=== PATIENT | female | born 1990 | race African-American/Black ===

== ENCOUNTER 2018-03-03 09:58 | Emergency (ER) | payer MEDICAID ==
[~2018-03-03] VITALS: Ht 172.7 cm; Wt 118.2 kg
[~2018-03-03 09:58] MED LIST: XANAX0.25 MG PO
[2018-03-03 10:02] VITALS: Ht 172.7 cm; Wt 118.2 kg
[2018-03-03] MEDS ORDERED: KLONOPIN1 MG PO (10:04)
[2018-03-03 10:45] LABS: ALBUMIN 3.1 g/dL (3.4-5.0); ALKALINE PHOSPHATASE 67 U/L (46-116); ALT (SGPT) 32 U/L (10-68); AMYLASE - SERUM 61 U/L (25-115); BASOPHILS 0.8 % (0-2); BILIRUBIN - TOTAL 0.27 mg/dL (0.2-1.3); CALC OSMOLALITY 278 mosm/kg (275-300); CALCIUM 8.5 mg/dL (8.5-10.1); CARBON DIOXIDE 26.3 mmol/L (21.0-32.0); CHLORIDE - SERUM 105 mmol/L (98-107); CREATININE - SERUM 0.9 mg/dL (0.6-1.3); EOSINOPHILS 0.8 % (0-7); GLUCOSE 85 mg/dL (74-106); HEMATOCRIT 38.9 % (36.0-48.0); HEMOGLOBIN 13.1 g/dL (12-16); IMMATURE GRANULOCYTES 0.2 % (0-5); LIPASE 106 U/L (73-393); LYMPHOCYTES 43.6 % (15-50); MCH 30.4 pg (26.0-34.0); MCHC 33.7 g/dL (31.0-37.0); MCV 90.3 fL (80.0-100.0); MONOCYTES 7.5 % (2-11); NEUTROPHILS 47.1 % (40-80); PLATELET COUNT 246 10x3/uL (130-400); POTASSIUM - SERUM 3.8 mmol/L (3.5-5.1); PROTEIN - SERUM 6.6 g/dL (6.4-8.2); RBC 4.31 10x6/uL (4.00-5.40); RDW 13.6 % (11.5-14.5); SODIUM 139 mmol/L (136-145); UREA NITROGEN 17 mg/dL (7-18); WBC 5.2 10x3/uL (4.8-10.8); eGFR NON AFRICAN AMERICAN 79 mL/min (90-120)
[2018-03-03 11:21] LABS: APPEARANCE CLEAR (CLEAR); COLOR YELLOW (YELLOW); HCG URINE NEGATIVE (NEGATIVE)
[2018-03-03 11:22] LABS: BILIRUBIN NEGATIVE (NEGATIVE); GLUCOSE NEGATIVE (NEGATIVE); KETONE NEGATIVE (NEGATIVE); NITRITE NEGATIVE (NEGATIVE); PROTEIN NEGATIVE (NEGATIVE); UROBILINOGEN NORMAL (NORMAL)
[2018-03-03 11:23] LABS: BACTERIA FEW /hpf (NONE SEEN); EPITHELIAL CELLS 0-5 /hpf (0-5); MUCUS <1+ /lpf (NONE SEEN); RED CELLS - URINE 0-5 /hpf (0-5); WHITE CELLS - URINE 0-5 /hpf (0-5)
[2018-03-03] MEDS ORDERED: CYCLOBENZAPRINE10 MG PO (12:18)
[2018-03-03 12:37] VITALS: BP 128/88
== END 2018-03-03 12:33 | disposition home or self-care (01) ==
LOC: D.ER 09:58
PROVIDERS: Family Medicine
DX: R10.2 Pelvic and perineal pain (principal); N83.201 Unspecified ovarian cyst, right side

== ENCOUNTER 2018-09-06 06:16 | Emergency (ER) | payer OTHER ==
[~2018-09-06] VITALS: Ht 172.7 cm; Wt 116.4 kg
[~2018-09-06 06:16] MED LIST changes: +CYCLOBENZAPRINE10 MG PO; +KLONOPIN1 MG PO
[2018-09-06 06:19] VITALS: Ht 172.7 cm; Wt 116.4 kg
[2018-09-06 07:02] LABS: HCG SERUM NEGATIVE (NEGATIVE)
[2018-09-06 07:15] LABS: BASOPHILS 0.3 % (0-2); EOSINOPHILS 0.5 % (0-7); HEMATOCRIT 40.3 % (36.0-48.0); HEMOGLOBIN 14.2 g/dL (12-16); LYMPHOCYTES 47.4 % (15-50); MCH 30.8 pg (26.0-34.0); MCHC 35.2 g/dL (31.0-37.0); MCV 87.4 fL (80.0-100.0); MEAN PLATELET VOLUME 10.1 fL (7.4-10.4); MONOCYTES 8.5 % (2-11); NEUTROPHILS 43.3 % (40-80); PLATELET COUNT 235 10x3/uL (130-400); RBC 4.61 10x6/uL (4.00-5.40); RDW 13.3 % (11.5-14.5)
[2018-09-06 07:16] LABS: ALBUMIN 3.7 g/dL (3.4-5.0); ANION GAP 13.8 mmol/L (8-16); BILIRUBIN - TOTAL 0.66 mg/dL (0.2-1.3); CREATININE - SERUM 1.1 mg/dL (0.6-1.3); POTASSIUM - SERUM 3.8 mmol/L (3.5-5.1); PROTEIN - SERUM 7.5 g/dL (6.4-8.2)
[2018-09-06 07:41] LABS: HCG URINE NEGATIVE (NEGATIVE)
[2018-09-06 07:54] LABS: APPEARANCE HAZY (CLEAR); BILIRUBIN NEGATIVE (NEGATIVE); COLOR YELLOW (YELLOW); GLUCOSE 500 mg/dL (NEGATIVE); KETONE MODERATE mg/dL (NEGATIVE); NITRITE NEGATIVE (NEGATIVE); PROTEIN NEGATIVE (NEGATIVE); SPECIFIC GRAVITY 1.025 (1.005-1.020); UROBILINOGEN NORMAL (NORMAL)
[2018-09-06 07:57] LABS: BACTERIA FEW /hpf (NONE SEEN); EPITHELIAL CELLS OCC /hpf (0-5); WHITE CELLS - URINE OCC /hpf (0-5)
[2018-09-06 07:58] LABS: RED CELLS - URINE RARE /hpf (0-5)
[2018-09-06 09:00] VITALS: BP 126/78
== END 2018-09-06 09:01 | disposition home or self-care (01) ==
LOC: D.ER 06:16
PROVIDERS: Emergency Medicine; Family Medicine
DX: N83.209 Unspecified ovarian cyst, unspecified side (principal); R10.2 Pelvic and perineal pain